=== PATIENT | female | born 1990 | race Two or more races ===

== ENCOUNTER 2024-05-07 09:14 | Emergency (ER) | payer OTHER, SELFPAY ==
[2024-05-07 09:18] VITALS: BP 130/82; PULSE 75; RESP 18; TEMP 37; O2SAT 98
[2024-05-07 09:45] VITALS: PULSE 72; RESP 18; BMI 32.6
--- NOTE | 2024-05-07 09:48 | EKG_ITS ---
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
[2024-05-07 09:56] VITALS: BP 122/77; PULSE 74; RESP 18; TEMP 36.9; O2SAT 99
--- NOTE | 2024-05-07 10:05 | PD.EDRME ---
Rapid Medical Screening Exam RME Arrival date/time: 05/07/24 09:14 33-year-old female presents emergency department complaint of an episode of dizziness today patient reports being approximate 28 weeks Chief Complaint: Dizziness Vital signs: Vital Signs Temperature 98.6 F 05/07/24 09:18 Pulse Rate 75 05/07/24 09:18 Respiratory Rate 18 05/07/24 09:18 Blood Pressure 130/82 05/07/24 09:18 Pulse Oximetry (%) 98 05/07/24 09:18 Oxygen Delivery Method Room Air 05/07/24 09:18
[2024-05-07 10:48] LABS: Basophils # (Auto) 0.1 Thou/mm3 (0.0-0.2); Basophils % (Auto) 0 % (0-2.5); Eosinophils # (Auto) 0.2 Thou/mm3 (0.0-0.5); Eosinophils % (Auto) 2 % (0-10); Hematocrit 36.4 % (36.0-46.0); Hemoglobin 12.4 g/dL (12.0-16.0); Immature Granulocytes % (Auto) 1 % (0-0); Immature Granulocytes Auto 0.07 Thou/mm3 (0.00-0.00); Lymphocytes # (Auto) 1.8 Thou/mm3 (1.0-4.8); Lymphocytes % (Auto) 15 % (10-50); Mean Corpuscular HGB Conc 34.1 g/dl (31.0-37.0); Mean Corpuscular Volume 94 fL (80-100); Monocytes # (Auto) 0.4 Thou/mm3 (0.0-0.8); Monocytes % (Auto) 4 % (0-12); Neutrophils # (Auto) 9.4 Thou/mm3 (1.8-7.7); Neutrophils % (Auto) 78 % (37-80); Nucleated Red Blood Cell % 0 /100 WBC (0); Platelet Count 228 Thou/mm3 (140-440); RDW Standard Deviation 45.8 fL (36.4-46.3); Red Blood Count 3.87 Miln/mm3 (4.00-5.20); White Blood Count 11.9 Thou/mm3 (3.6-11.0)
[2024-05-07 11:07] LABS: Alanine Aminotransferase 11 U/L (10-49); Albumin, Serum 3.9 gm/dL (3.5-5.0); Albumin/Globulin Ratio 1.4 (1.2-2.2); Alkaline Phosphatase 78 U/L (46-116); Anion Gap 7 (7-16); Aspartate Amino Transferase 20 U/L (0-34); BUN/Creatinine Ratio 13 Ratio (12-20); Bilirubin,Total 0.4 mg/dL (0.3-1.2); Blood Urea Nitrogen 8 mg/dL (9-23); Calcium 9.2 mg/dL (8.3-10.6); Calcium (Corrected) 9.3 mg/dL (8.5-10.1); Carbon Dioxide 25.3 mMol/L (20.0-31.0); Chloride 105 mMol/L (98-107); Creatinine (Component) 0.6 mg/dL (0.6-1.3); Estimated Creatinine Clearance 162.8 mL/min (>60); Globulin 2.7 gm/dL (2.3-3.5); Glucose 80 mg/dL (74-106); Magnesium 2.1 mg/dL (1.6-2.6); Osmolality,Calculated 271 (275-295); Potassium 4.2 mMol/L (3.4-5.1); Sodium 137 mMol/L (136-145); Total Protein 6.6 gm/dL (5.7-8.2); Troponin I < 0.002 ng/mL (0.0-0.045); eGFR > 60 See Note
--- NOTE | 2024-05-07 11:33 | EDNOTE_ITS ---
ED General RME/HPI General Chief complaint: Dizziness Stated complaint: DIZZINESS/PALPITATIONS SINCE 0900 Time Seen by Provider: 05/07/24 10:49 Arrival date/time: 05/07/24 09:14 RME / HPI RME / HPI narrative: 33-year-old female patient 5 para 3, 1, about 28 weeks , was brought in by family for evaluation regarding sudden onset of near syncope. Patient initially noted strong uterine contraction, that lasted for few seconds and later on developed sudden onset of dizziness, near syncope, and not feeling well. Symptoms started few minutes prior to ER visit. And lasted for few minutes. Patient denies any chest pain denies any vaginal bleeding denies any other complaints. Was seen by CERTIFIED PEER SPECIALIST in [place]. Related Data Allergies Allergy/AdvReac Type Severity Reaction Status Date / Time kiwi Allergy Severe Swelling Verified 05/07/24 09:47 of Lip/Tongue/Throat Review of Systems Review of Systems Narrative Review of Systems: Review of system reviewed and within normal limits except mentioned in HPI ED Exam Narrative Physical exam: VITAL SIGNS: Reviewed. GENERAL APPEARANCE: Alert and interactive, follows commands, no acute distress, HEAD AND FACE: Non-traumatic. ENT: PERRL, pink conjunctivitis, eyelid no trauma, Mucous membrane moist. NECK: Supple, nontender, no nuchal rigidity. CHEST: No tenderness, no crepitus, no paradoxical movement, no retractions. LUNGS: Clear, well ventilated, symmetric, no rales, no wheezing, no ronchi, no stridor, good breath sounds bilaterally. HEART: Regular rate, regular rhythm, no murmur, no gallops. ABDOMEN: Soft, positive bowel sounds, nondistended, no guarding, nontender, no rebound, no masses, gravid abdomen RECTAL: Deferred. GENITAL: Deferred. NEUROLOGICAL: Gross motor function intact sensory function intact, Appropriate for age. MUSCULOSKELETAL: low back nontender, full range of motion. EXTREMITIES: Nontender, full range of motion. SKIN: Color pink, dry, no rash, no lacerations, no abrasions, no contusions. LYMPHATICS: Deferred. Course Quality Measures none Orders Category Date Time Status EKG (ED ONLY) *Do not use* NOW Care 05/07/24 09:48 Completed EKG (ED Only) Stat Exams 05/07/24 09:48 Draft CBC Stat Lab 05/07/24 10:25 Received Comprehensive Metabolic Panel Stat Lab 05/07/24 10:25 Completed Mag [Magnesium] Stat Lab 05/07/24 10:25 Completed Troponin I Stat Lab 05/07/24 10:25 Completed Vital Signs Vital signs: Vital Signs Temperature 98.6 F 05/07/24 09:18 Pulse Rate 75 05/07/24 09:18 Respiratory Rate 18 05/07/24 09:18 Blood Pressure 130/82 05/07/24 09:18 Pulse Oximetry (%) 98 05/07/24 09:18 Oxygen Delivery Method Room Air 05/07/24 09:18 MDM Patient data External records reviewed:: None Clinical information provided by:: patient Social determinants that could affect healthcare access:: none Patient has the following chronic illnesses:: None How is presenting disease/condition affected by chronic disease/condition?: no chronic disease Evaluation data The following diagnostics were reviewed and interpreted by me:: lab results and EKG tracing(s) Lab and/or radiology exams considered but not ordered:: None Interpretation Summary: EKG shows normal sinus rhythm, ventricular rate of 67 bpm, no ST segment elevation or depression. Laboratory workup all came back unremarkable. Medications Medications considered but not ordered:: None Medication administrations:: None Consultations Consultation(s) initiated? (list below): No Diagnosis Differential Diagnosis ED Complaint MDM: Vasovagal syncope, Gallia Wick contraction, dehydration Most likely diagnosis given after review of the tests above:: Vasovagal near syncope, Admission Indicated Admission indicated?: not indicated Explain why admission is indicated or not indicated:: Stable for discharge home after cleared by CERTIFIED PEER SPECIALIST in labor delivery Admission Request Was there a request for admission?: No Disposition Plan Disposition Plan: Discharge Discharge Attestation Discharge Attestation: Patient condition: Stable Medical Decision Making MDM Narrative MDM Narrative: 33-year-old female patient 5 para 3, 1, about 28 weeks , was brought in by family for evaluation regarding sudden onset of near syncope. Patient initially noted strong uterine contraction, that lasted for few seconds and later on developed sudden onset of dizziness, near syncope, and not feeling well. Symptoms started few minutes prior to ER visit. And lasted for few minutes. Patient denies any chest pain denies any vaginal bleeding denies any other complaints. Was seen by CERTIFIED PEER SPECIALIST in [place]. Patient's workup today all came back unremarkable. Prior to discharge, patient told me that she was able to walk to the bathroom without assistance. And no recurrence of symptoms. Patient denies any vaginal bleeding or spotting. Patient is cleared in the emergency room. Will go to labor and delivery for monitoring also. Patient was advised to follow-up with her CERTIFIED PEER SPECIALIST this afternoon, she told me she had an appointment with CERTIFIED PEER SPECIALIST this afternoon. Differential Diagnosis Differential Diagnosis: Vasovagal syncope, Leroy Wick contraction, dehydration Lab Data 05/07/24 10:25 05/07/24 10:25 Labs: Lab Results 05/07/24 Range/Units 10:25 Sodium 137 (136-145) mMol/L Potassium 4.2 (3.4-5.1) mMol/L Chloride 105 (98-107) mMol/L Carbon Dioxide 25.3 (20.0-31.0) mMol/L Anion Gap 7 (7-16) BUN 8 L (9-23) mg/dL Creatinine 0.6 (0.6-1.3) mg/dL Estim Creat Clear Calc 162.8 (>60) mL/min eGFR > 60 (60 - ) See Note BUN/Creatinine Ratio 13 (12-20) Ratio Glucose 80 (74-106) mg/dL Calculated Osmolality 271 L (275-295) Calcium 9.2 (8.3-10.6) mg/dL Corrected Calcium 9.3 (8.5-10.1) mg/dL Magnesium 2.1 (1.6-2.6) mg/dL Total Bilirubin 0.4 (0.3-1.2) mg/dL AST 20 (0-34) U/L ALT 11 (10-49) U/L Alkaline Phosphatase 78 (46-116) U/L Troponin I < 0.002 (0.0-0.045) ng/mL Total Protein 6.6 (5.7-8.2) gm/dL Albumin 3.9 (3.5-5.0) gm/dL Globulin 2.7 (2.3-3.5) gm/dL Albumin/Globulin Ratio 1.4 (1.2-2.2) Discharge Plan Plan Patient Disposition: HOME (Self Care) Disposition Comment: Stable Prescriptions/Referrals Referrals: Godfrey Blanco([facility]/MD Vicenta [Primary Care Provider] - In 1 week Problem List Clinical Impression: Vasovagal near-syncope, and not yet delivered in third trimester Patient/Caregiver Discharge Instructions Discharge Activity: activity as tolerated Education Materials: Understanding Vasovagal Syncope Additional Instructions: Thank you for the opportunity for serving you today. You are stable for discharged . You are advised to: Follow-up with your CERTIFIED PEER SPECIALIST this afternoon Return to ED for worsening of symptoms Increase oral fluids Print Language: Tamazight Stand Alone Forms: Reena Award Info., Patient Portal Info Letter PA/HOMERO Supervising Physician PA/HOMERO Supervising Physician: MD Tiny
== END 2024-05-07 11:53 | disposition home or self-care (01) ==
PROVIDERS: Nurse Practitioner Primary Care; Emergency Provider Emergency Medicine; PCP Family Medicine
DX: O26.893 Other specified pregnancy related conditions, third trimester (principal); R55 Syncope and collapse; R94.31 Abnormal electrocardiogram [ECG] [EKG]; Z3A.28 28 weeks gestation of pregnancy
CPT/HCPCS: 36415; 80053; 83735; 84484; 85025; 93005; 99283

== ENCOUNTER 2024-05-07 11:54 | Outpatient (CLI) | payer OTHER, SELFPAY ==
[2024-05-07] VITALS (16 sets, daily range): BP systolic 118; BP diastolic 69; PULSE 66–78; RESP 16; O2SAT 91–97
--- NOTE | 2024-05-07 13:08 | PD.LDPN ---
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 She was cleared by ER and came to L&D to be cleared for any obstetric issues. She thought she maybe had a Leroy Hick earlier, but no cramping or regular ctx. No lof, no vaginal bleeding. Very normal movement. She denies chest pain, shortness of breath and palpitations. Current : This has been uncomplicated, she has had regular OB care with [place] OBGYN [place]. Previous pregnancies: Vaginal deliveries x3. Last was complicated by palpitations in 3rd trimester with a negative workup. PMhx: asthma, seasonal allergies ROS negative other than what was described above. Vitals wnl, afebrile General: well developed, well nourished, no acute distress, conversant Cardiac: normal heart rate Lungs: breathing without distress Abdomen: soft, gravid, non-tender, no rebound or guarding Extremities: no BLE edema NST: reassuring for gestational age with 10x10 accels, no decels, mod arabella [place]: no ctx Bedside ultrasound performed by Dr. 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 Vitals wnl, benign exam. Reassuring status based on NST and bedside ultrasound with normal MVP. No ctx pattern. Plan: -Provided reassurance regarding findings -Advised to increase hydration, have a salty snack when she will be standing for prolonged amount of time, buy and wear good compression stockings daily -Continue routine follow up with OBGYN -Discussed return precautions Dr. Payne
== END 2024-05-07 13:15 | disposition home or self-care (01) ==
LOC: S4S1 11:56 → S4SX 11:56
PROVIDERS: Referring Provider Obstetrics & Gynecology; Visit Provider Obstetrics & Gynecology
DX: O26.893 Other specified pregnancy related conditions, third trimester (principal); Z3A.28 28 weeks gestation of pregnancy; R42 Dizziness and giddiness; R55 Syncope and collapse
CPT/HCPCS: 59025

== ENCOUNTER → 2024-05-17 | Outpatient (CLI) | payer OTHER, SELFPAY ==
[2024-05-17 10:19] LABS: Basophils % (Auto) 0 % (0-2.5); Eosinophils # (Auto) 0.2 Thou/mm3 (0.0-0.5); Eosinophils % (Auto) 2 % (0-10); Hemoglobin 12.3 g/dL (12.0-16.0); Immature Granulocytes % (Auto) 1 % (0-0); Immature Granulocytes Auto 0.08 Thou/mm3 (0.00-0.00); Lymphocytes # (Auto) 1.8 Thou/mm3 (1.0-4.8); Lymphocytes % (Auto) 18 % (10-50); Mean Corpuscular HGB Conc 35.1 g/dl (31.0-37.0); Mean Corpuscular Volume 94 fL (80-100); Monocytes # (Auto) 0.2 Thou/mm3 (0.0-0.8); Monocytes % (Auto) 2 % (0-12); Neutrophils # (Auto) 7.6 Thou/mm3 (1.8-7.7); Neutrophils % (Auto) 76 % (37-80); Nucleated Red Blood Cell % 0 /100 WBC (0); Platelet Count 208 Thou/mm3 (140-440); RDW Standard Deviation 45.9 fL (36.4-46.3); Red Blood Count 3.73 Miln/mm3 (4.00-5.20)
[2024-05-17 10:33] LABS: Glucose,1 Hour PP 50gm Dose 147 mg/dL (80-140)
[2024-05-17 10:52] LABS: Syphilis Nonreactive (Nonreactive)
== END | disposition home or self-care (01) ==
PROVIDERS: PCP Family Medicine; Referring Provider Family Medicine; Visit Provider Family Medicine
DX: Z34.82 Encounter for supervision of other normal pregnancy, second trimester (principal)
CPT/HCPCS: 36415; 82950; 85025; 86780

== ENCOUNTER 2025-01-05 16:40 | Emergency (ER) | payer BC, SELFPAY ==
[2025-01-05 16:41] VITALS: BMI 32.6
[2025-01-05 17:31] VITALS: BP 137/85; PULSE 70; RESP 16; TEMP 37.2; O2SAT 99
--- NOTE | 2025-01-05 17:47 | PD.EDWOUND ---
ED Wound/Laceration-RME/HPI General Chief Complaint: Wound/Laceration Stated Complaint: LEFT THUMB LAC AND FACIAL NUMBNESS Time Seen by Provider: 01/05/25 16:55 Arrival date/time: 01/05/25 16:40 34-year-old female comes with a laceration to the left thumb. Patient states she cut her hand on a metal object in her vehicle. She is up-to-date on tetanus she denies numbness tingling stiffness or fever. She has not cleaned the wound Limitations: no limitations Related Data Home Medications ?Medication ?Instructions ?Recorded ?Confirmed ipratropium 0.5 mg-albuterol 3 mg 3 ml inhalation PRN PRN ASTHMA 05/07/24 05/07/24 (2.5 mg base)/3 mL nebulization soln montelukast 10 mg tablet 10 mg PO QDAY 05/07/24 05/07/24 Allergies Allergy/AdvReac Type Severity Reaction Status Date / Time kiwi Allergy Severe Swelling Verified 01/05/25 16:43 of Lip/Tongue/Throat Review of Systems Constitutional Constitutional: Denies chills and Denies fever(s) Cardiovascular Cardiovascular: Denies syncope Musculoskeletal Musculoskeletal: Reports arthralgias, Denies joint swelling and Denies tingling Integumentary/Breasts Skin/Breast: Denies unusual bruising and Reports wounds Neurologic Neurologic: Denies syncope and Denies tingling Hematologic/Lymphatic Hematologic/Lymphatic: Denies easy bleeding and Denies easy bruising Past Medical History Social History SMOKING STATUS: Never smoker ED Exam General Limitations: Present no limitations General appearance: Present alert and in no apparent distress Neurological Exam Neurological exam: Present alert, oriented X3 and CN II-XII intact Psychiatric Psychiatric exam: Present normal affect and normal mood Skin Skin exam: Present warm, dry, intact and normal color Course Quality Measures none Orders Category Date Time Status Dermabond Set Up NOW Care 01/05/25 17:54 Active Wound Care NOW Care 01/05/25 17:53 Active immobilizer [Splint / Immobilizer] STAT Care 01/05/25 17:55 Active Vital Signs Vital signs: Vital Signs Temperature 99 F 01/05/25 17:31 Pulse Rate 70 01/05/25 17:31 Respiratory Rate 16 01/05/25 17:31 Blood Pressure 137/85 H 01/05/25 17:31 Pulse Oximetry (%) 99 01/05/25 17:31 Oxygen Delivery Method Room Air 01/05/25 17:31 Wound / Laceration Patient data External records reviewed:: None Clinical information provided by:: patient Social determinants that could affect healthcare access:: none Patient has the following chronic illnesses:: none How is presenting disease/condition affected by chronic disease/condition?: no chronic disease Evaluation data The following diagnostics were reviewed and interpreted by me:: other (specify) (none) Lab and/or radiology exams considered but not ordered:: none Interpretation Summary: none Medications / Prescriptions Medications or Prescriptions considered but not ordered:: none Medication administrations:: none Consultations Consultation(s) initiated? (list below): No Diagnosis Wound Differential Diagnosis: laceration, abrasion and avulsion of skin Most likely diagnosis given after review of the tests above:: right thumb laceration Admission Indicated Admission indicated?: not indicated Admission Request Was there a request for admission?: No Disposition Plan Disposition Plan: Discharge Discharge Attestation Discharge Attestation: The patient and all family members were given an opportunity to ask questions and understood the discharge instructions. Discharge instructions specifically effects, indications for sooner follow up or return to the emergency department, and the expected course of current diagnosis. Patient condition: Stable Discharge Plan Plan Patient Disposition: HOME (Self Care) Prescriptions/Referrals Prescriptions/Med Rec: No Action montelukast 10 mg tablet 10 mg PO QDAY Patient Comments: TAKE 1 TABLET BY MOUTH EVERY DAY ipratropium-albuterol 0.5 mg-3 mg(2.5 mg base)/3 mL solution for nebulization 3 ml INHALATION PRN PRN (Reason: ASTHMA) Patient Comments: INHALE CONTENTS OF 1 VIAL VIA NEBULIZER 4 TIMES A DAY NEEDED Problem List Clinical Impression: Laceration of thumb Patient/Caregiver Discharge Instructions Discharge Activity: activity as tolerated Education Materials: ED Laceration, Extremity: Skin Glue Additional Instructions: Keep the splint on for 24 to 48 hours to help dry glue into prevent reopening of wound and keep area clean and dry follow-up to primary care provider in 48 hours for wound recheck and as needed Print Language: Slovak Stand Alone Forms: Reena Award Info., Patient Portal Info Letter
== END 2025-01-05 19:52 | disposition home or self-care (01) ==
PROVIDERS: Emergency Provider Emergency Medicine; PCP Family Medicine
DX: S61.012A Laceration without foreign body of left thumb without damage to nail, initial encounter (principal); W45.8XXA Other foreign body or object entering through skin, initial encounter; Y92.810 Car as the place of occurrence of the external cause
CPT/HCPCS: 12001; 99284